=== PATIENT | male | born 1945 | race Caucasian/White ===

== ENCOUNTER 2019-08-28 18:56 | Emergency (ER) | payer MEDICARE, BC ==
[2019-08-28 19:04] VITALS: BP 136/86; PULSE 88
[2019-08-28] MEDS ORDERED: Lidocaine 1% 30 ML SDV INJECT ONE (19:19)
[2019-08-28] MEDS ORDERED: Diphtheria,Pertussis(Acell),Tetanus Vaccine 0.5 ML SDV IM ONE (19:22)
--- NOTE | 2019-08-28 19:24 | EDM.PDOC ---
ED HPI GENERAL MEDICAL PROBLEM - General Chief Complaint: Laceration Stated Complaint: FISH HOOK IN HAND Time Seen by Provider: 08/28/19 19:19 Source of Information: Reports: Patient History Limitations: Reports: No Limitations - History of Present Illness INITIAL COMMENTS - FREE TEXT/NARRATIVE: Patient comes emergency department today with complaints of a fishhook in his right hand. On the dorsal aspect of his distal right wrist the patient had a fishhook that got stuck in his hand that was a trebble hook. They were unable to get it out so thankfully they cut the hook right down to the skin and cannot see the hook in the skin anymore to get it out so they came to the ED. He denies any change in sensation or functionality of his right hand and wrist. Unknown of when his last tetanus shot is. - Related Data Allergies Allergy/AdvReac Type Severity Reaction Status Date / Time ciprofloxacin Allergy Unknown Rash Unverified 08/28/19 19:04 oxycodone Allergy Unknown NAUSEA, Unverified 08/28/19 19:04 VOMITING Home Meds: Home Meds Pantoprazole [Protonix] 40 mg PO BEDTIME 08/04/14 [History] Tamsulosin HCl [Flomax] 0.4 mg PO DAILY 08/04/14 [History] Past Medical History Gastrointestinal History: Reports: GERD Genitourinary History: Reports: BPH Oncologic (Cancer) History: Reports: Non-Hodgkin's Lymphoma Social & Family History - Tobacco Use Smoking Status *Q: Never Smoker Second Hand Smoke Exposure: No - Recreational Drug Use Recreational Drug Use: No ED ROS GENERAL - Review of Systems Review Of Systems: Comprehensive ROS is negative, except as noted in HPI. ED EXAM, SKIN/RASH Exam: See Below Exam Limited By: No Limitations General Appearance: Alert, WD/WN, No Apparent Distress Peripheral Pulses: 2+: Radial (L), Radial (R) Extremities: No: Normal Inspection (On the dorsal lateral aspect of the right distal wrist there is a small puncture wound. There is a small amount of capillary bleeding. I am unable to identify any foreign material. The functionality of the wrist and the hand is intact. The CMS is appropriate.) Neurological: Alert, Oriented, Normal Cognition, No Motor/Sensory Deficits Psychiatric: Normal Affect, Normal Mood Skin: Warm, Dry, Intact, Normal Color, No Rash ED SKIN PROCEDURES - Foreign Body Removal Indication:: Fish hook in the skin. Consent Obtained:: Patient Performing Doctor:: Kishore Patterson Foreign Body Other Location Comment:: On the lateral dorsal aspect of the right wrist superficial skin. Anesthesia Type: Local Findings:: I had to make a very small superficial incision down through the skin to find the fishhook that had been trimmed way too short. After I was able to identify and get a hold of it with a [place] clamp. I was unable to remove it backwards. So I finished the hook through the skin and came out in a different aspect. And remove the entire foreign body. It was completely intact. There is no other foreign material. Small amount of bleeding. The hand was then cleansed with sterile water and chlorhexidine. Bacitracin bandage applied. Complications:: No Comments:: Tetanus updated. Course - Vital Signs Last Recorded V/S: Last Vital Signs Temp 97.5 F 08/28/19 19:00 Pulse 88 08/28/19 19:00 Resp 18 08/28/19 19:00 BP 136/86 08/28/19 19:00 Pulse Ox 97 08/28/19 19:00 - Orders/Labs/Meds Orders: Active Orders 24 hr Category Date Time Status Vaccines to be Administered [RC] PER UNIT ROUTINE Care 08/28/19 19:23 Active Meds: Medications Discontinued Medications Generic Name Dose Route Start Last Admin Trade Name Rebecca PRN Reason Stop Dose Admin Bacitracin 1 dose 08/28/19 19:35 Bacitracin Oint 1 Gm TOP 08/28/19 19:36 ONETIME ONE Diphtheria/Tetanus/Acell Pertussis 0.5 ml 08/28/19 19:22 Adacel IM 08/28/19 19:23 .ONCE ONE Lidocaine HCl 30 ml 08/28/19 19:19 Xylocaine-Mpf 1% INJECT 08/28/19 19:20 ONETIME ONE Departure - Departure Time of Disposition: 19:39 Disposition: Home, Self-Care 01 Clinical Impression: Removal of foreign body - Discharge Information Instructions: Puncture Wound, [id number] Forms: ED Department Discharge Additional Instructions: Cleanse hands at least twice daily with soap and water. Bacitracin and bandage until healed. Watch for signs of infection. Tylenol as needed for pain. Your tetanus was updated for the next 7 years. Recheck if any concerns. Sepsis Event Note (ED) - Evaluation Sepsis Screening Result: No Definite Risk - Focused Exam Vital Signs: Vital Signs Temp Pulse Resp BP Pulse Ox 08/28/19 19:00 97.5 F 88 18 136/86 97 - My Orders Last 24 Hours: My Active Orders 08/28/19 19:23 Vaccines to be Administered [RC] PER UNIT ROUTINE - Assessment/Plan Last 24 Hours: My Active Orders 08/28/19 19:23 Vaccines to be Administered [RC] PER UNIT ROUTINE Assessment:: Fish hook removal from the dorsum of the right wrist. Plan: Cleanse hands at least twice daily with soap and water. Bacitracin and bandage until healed. Watch for signs of infection. Tylenol as needed for pain. Your tetanus was updated for the next 7 years. Recheck if any concerns.
[2019-08-28] MEDS ORDERED: Bacitracin Oint 1 GM U/D Packet TOP ONE (19:35)
== END 2019-08-28 19:43 | disposition home or self-care (01) ==
LOC: DL.ED 18:56
DX: S61.541A Puncture wound with foreign body of right wrist, initial encounter (principal); K21.9 Gastro-esophageal reflux disease without esophagitis; Z79.899 Other long term (current) drug therapy; Z88.1 Allergy status to other antibiotic agents; Z88.5 Allergy status to narcotic agent; W45.8XXA Other foreign body or object entering through skin, initial encounter
CPT/HCPCS: 10120; 90471; 90715; 99282; J2001

== ENCOUNTER 2021-04-06 22:19 | Emergency (ER) | payer MEDICARE, BC ==
[2021-04-06 23:02] VITALS: BP 89/65; PULSE 62
[2021-04-07] MEDS ORDERED: Aspirin 81 MG Tab.Chew PO ONE (00:58)
[2021-04-07 01:49] LABS: CORONAVIRUS COVID-19 NAA NEGATIVE (NEGATIVE)
== END 2021-04-07 01:50 ==
LOC: DL.ED 22:19
DX: I21.4 Non-ST elevation (NSTEMI) myocardial infarction (principal); K21.9 Gastro-esophageal reflux disease without esophagitis; N40.0 Benign prostatic hyperplasia without lower urinary tract symptoms; Z88.1 Allergy status to other antibiotic agents; Z88.5 Allergy status to narcotic agent; Z79.899 Other long term (current) drug therapy; Z20.822 Contact with and (suspected) exposure to COVID-19
CPT/HCPCS: 0240U; 36415; 70450; 71045; 80053; 83605; 84484; 85025; 93005; 99285; A9270

== ENCOUNTER 2024-07-24 07:29 | Day surgery (SDC) | payer MEDICARE, BC ==
[~2024-07-24 07:29] MED LIST: Propofol 200 MG/20 ML SDV ONE
[2024-07-24] MEDS ORDERED: Dextrose 5%-0.45% NaCl 1,000 ML IV SCH (07:30)
[2024-07-24] MEDS ORDERED: Lactated Ringers 1,000 ML IV ONE (07:30)
[2024-07-24] MEDS ORDERED: Ketamine 500 mg/10 ML MDV IV ONE (07:30)
[2024-07-24] MEDS ORDERED: dexmedeTOMIDine HCl 200 MCG/2 ML SDV IV ONE (07:30)
[2024-07-24] MEDS ORDERED: Propofol 200 MG/20 ML SDV IV ONE (07:30)
[2024-07-24] MEDS ORDERED: ePHEDrine 50 MG/ML SDV IV ONE (07:30)
[2024-07-24] MEDS: Lactated Ringers 1,000 ML IV SCH (07:54)
[2024-07-24] MEDS ORDERED: Propofol 200 MG/20 ML SDV ONE (08:53)
[2024-07-24 10:03] VITALS: BP 117/73; PULSE 64
== END 2024-07-24 10:22 | disposition home or self-care (01) ==
LOC: DL.ENDO 07:29
PROVIDERS: ATTEND Internal Medicine Gastroenterology
DX: D64.9 Anemia, unspecified (principal); K29.50 Unspecified chronic gastritis without bleeding; K31.7 Polyp of stomach and duodenum; K25.9 Gastric ulcer, unspecified as acute or chronic, without hemorrhage or perforation; K21.9 Gastro-esophageal reflux disease without esophagitis
CPT/HCPCS: 43239; J2704; J3490; J7120; 00731; 88305; 88342; 99100